=== PATIENT | male | born 1995 | race Caucasian/White ===

== ENCOUNTER 2019-03-28 08:19 | Emergency (ER) | payer OTHER ==
[~2019-03-28] VITALS: Ht 180.3 cm; Wt 81.6 kg
[2019-03-28 08:22] VITALS: BP 130/40
--- NOTE | 2019-03-28 08:32 | NUR ---
XRAY WAS BEDSIDE TO DO XRAY OF FOOT.
[2019-03-28] MEDS ORDERED: KETOROLAC 60 MG/2 ML VIAL IM ONE (09:50)
--- NOTE | 2019-03-28 09:56 | NUR ---
PT WAS MEDICATED WITH TORADOL IM PER MD ORDER.
--- NOTE | 2019-03-28 10:29 | NUR ---
PLACED ORTHO SHOE ON PATIENT'S LEFT FOOT PER MD
[2019-03-28 10:36] VITALS: BP 127/75
== END 2019-03-28 08:22 | disposition home or self-care (01) ==
LOC: MED 08:19
DX: S92.352A Displaced fracture of fifth metatarsal bone, left foot, initial encounter for closed fracture (principal); X58.XXXA Exposure to other specified factors, initial encounter; Y93.66 Activity, soccer; Y92.89 Other specified places as the place of occurrence of the external cause; Y99.8 Other external cause status
CPT/HCPCS: 73630; 96372; 99283; J1885; Q0092

== ENCOUNTER 2019-07-03 22:40 | Emergency (ER) | payer OTHER ==
[~2019-07-03] VITALS: Ht 180.3 cm; Wt 81.6 kg
[2019-07-03 23:03] VITALS: BP 133/75
--- NOTE | 2019-07-03 23:40 | NUR ---
FLU SWAB OBTAINED AND SENT TO LAB
--- NOTE | 2019-07-04 | NUR ---
PT 23 Y/O MALE BIB FAMILY FOR C/O PRODUCTIVE COUGH X 1 DAY. PT RESPIRATIONS ARE EVEN AND UNLABORED. CRAKLES NOTED IN BOTH UPPER LOBES. O2SAT @ 97% ON RA. PT STATES SECRETIONS ARE THIN AND YELLOW IN COLOR. AFEBRILE DENIES N/V/D. PT RESTING IN BED SITTING UP WITH FAMILY AT BEDSIDE. SKIN IS WARM AND DRY TO TOUCH. BED LOCKED AND IN LOWEST POSITION. MEDHX: NONE ALLERGIES: NKA
--- NOTE | 2019-07-04 00:18 | NUR ---
Dr. Pérez examining patient.
[2019-07-04] MEDS ORDERED: KETOROLAC 60 MG/2 ML VIAL IM ONE (00:30)
[2019-07-04] MEDS ORDERED: ONDANSETRON 4 MG ODT PO ONE (00:30)
--- NOTE | 2019-07-04 00:39 | NUR ---
PT LEFT BEFORE MEDICATION COULD BE RE-EVALUATED.
--- NOTE | 2019-07-04 00:50 | NUR ---
Patient discharged with v/s stable. Written and verbal after care instructions given and explained. Patient alert, oriented and verbalized understanding of instructions. Ambulatory with steady gait. All questions addressed prior to discharge. ID band removed. Patient advised to follow up with PMD. Rx of MORTIN, PROMETHAZINE given. Patient educated on indication of medication including possible reaction and side effects. Opportunity to ask questions provided and answered.
[2019-07-04 00:53] VITALS: BP 133/75
== END 2019-07-04 00:50 | disposition home or self-care (01) ==
LOC: MED 22:40
DX: J06.9 Acute upper respiratory infection, unspecified (principal)
CPT/HCPCS: 87804; 96372; 99283; J1885; Q0162

== ENCOUNTER 2020-06-20 19:09 | Emergency (ER) | payer SELFPAY ==
[~2020-06-20] VITALS: Ht 180.3 cm; Wt 86.2 kg
[2020-06-20 20:40] VITALS: BP 126/73
--- NOTE | 2020-06-20 20:43 | NUR ---
TO LOBBY A/W BED AMBULATORY
[2020-06-20] MEDS ORDERED: KETOROLAC 60 MG/2 ML VIAL IM ONE (21:05)
--- NOTE | 2020-06-20 22:20 | NUR ---
Patient discharged with v/s stable. Written and verbal after care instructions given and explained. Patient alert, oriented and verbalized understanding of instructions. Ambulatory with steady gait. All questions addressed prior to discharge. ID band removed. Patient advised to follow up with PMD. Rx of robaxin and naprosyn given. Patient educated on indication of medication including possible reaction and side effects. Opportunity to ask questions provided and answered.
== END 2020-06-20 22:20 | disposition home or self-care (01) ==
LOC: MED 19:09
DX: S39.012A Strain of muscle, fascia and tendon of lower back, initial encounter (principal); M54.2 Cervicalgia; M54.5 Low back pain; Z98.890 Other specified postprocedural states; X58.XXXA Exposure to other specified factors, initial encounter; Y93.89 Activity, other specified; Y92.89 Other specified places as the place of occurrence of the external cause; Y99.8 Other external cause status
CPT/HCPCS: 72050; 72110; 99284